=== PATIENT | female | born 1985 | race African-American/Black ===

== ENCOUNTER 2018-08-31 05:12 | Emergency (ER) | payer SELFPAY ==
[2018-08-31] MEDS ORDERED: SODIUM CHLORIDE 0.9% 1,000 ML IV ONE (05:24)
[2018-08-31] MEDS ORDERED: ONDANSETRON 4 MG ODT STARTER PACK 2 TAB BTL PO STA (05:33)
[2018-08-31] MEDS ORDERED: ONDANSETRON 4 MG/2 ML VIAL IVP STA ×2 (05:33→05:34)
[2018-08-31] MEDS ORDERED: HYDROcodone/APAP 5-325MG 1 EACH TAB PO STA (05:33)
--- NOTE | 2018-08-31 05:43 | ED ---
General Adult HPI - General Chief complaint: Extremity Injury, Lower Stated complaint: Knee Pain Time Seen by Provider: 08/31/18 05:23 Source: patient, family Mode of arrival: ambulatory Limitations: no limitations - History of Present Illness Initial comments: The patient is a 33-year-old female with a history of IV heroin abuse who presents the ED today for evaluation of withdrawal and left knee pain. Patient reports that her last use was 3 days ago. She reports she's been awake all night vomiting. She reports that she has developed some pain in her left knee. Pain is an ache, not worse with movement. Pain is not associated with any fevers or chills. Patient does have a history of traumatic injury to left leg with surgical intervention for femur as well as tibial fractures in 2007. Patient is originally from [facility], she reports that she ended up and [place] after getting in a truck with the gentleman, this was related to her drug use. Her friend at bedside is here to drive her back to [place] where she will be with her family in his role in a rehab facility. They came to the ER this morning for management of the patient's withdrawal symptoms so that she can tolerate the long drive home. - Related Data Home Medications Medication Instructions Recorded Confirmed No Known Home Medications 08/31/18 08/31/18 Allergies Allergy/AdvReac Type Severity Reaction Status Date / Time No Known Allergies Allergy Verified 08/31/18 05:21 Review of Systems ROS Statement: Those systems with pertinent positive or pertinent negative responses have been documented in the HPI. ROS Other: All systems not noted in ROS Statement are negative. Past Medical History Additional Past Medical History / Comment(s): drug abuse History of Any Multi-Drug Resistant Organisms: None Reported Past Surgical History: No Surgical Hx Reported Past Psychological History: No Psychological Hx Reported Smoking Status: Current every day smoker Past Alcohol Use History: Unable to Obtain Past Drug Use History: Heroin General Exam - General Exam Comments Initial Comments: Physical Exam GENERAL: Appears older than stated age [place] appears mildly dehydrated HENT: Normocephalic, Atraumatic. EYES: PERRL, EOMI PULMONARY: Unlabored respirations. No audible rales rhonchi or wheezing was noted. CARDIOVASCULAR: There is a regular rate and rhythm without any murmurs gallops or rubs. ABDOMEN: Soft and nontender with normal bowel sounds. SKIN: Lesions on bilateral forearms consistent with IV drug abuse All healed surgical incisions left femur and left tib-fib consistent with surgical history : Deferred NEUROLOGIC: Patient is alert and oriented x3. Moving all extremities spontaneously MUSCULOSKELETAL: Normal extremities with adequate strength and full range of motion. No lower extremity swelling or edema. No calf tenderness. PSYCHIATRIC: Normal psychiatric evaluation. Limitations: no limitations Limitations: no limitations Course Vital Signs 08/31/18 05:18 Temperature 98.6 F Pulse Rate 103 H Respiratory 20 Rate Blood Pressure 100/72 O2 Sat by Pulse 98 Oximetry Medical Decision Making - Medical Decision Making The patient was seen and evaluated, history was obtained from the patient and friend at bedside. Patient with a history of IV heroin abuse, currently withdrawing experiencing nausea, vomiting and diarrhea. Patient has developed left knee pain, I suspect that this is bruising secondary to her kneeling in the toilet vomiting. Patient doesn't recall any specific trauma. She has full range of motion of the knee without any pain, no evidence of a septic joint. At this time the goal is to treat the patient's withdrawal symptoms so that she can tolerate a [address] to [place] where she will be with her family in enrolling rehab. Patient requesting Suboxone. I will give the patient one oral dose of [place], at this time clonidine is not indicated she's not hypertensive. I will treat with IV fluids and Zofran for the acute nausea and vomiting and discharge the patient with a Zofran ODT starter pack. Patient received IV fluids, no nausea or vomiting in the ER. At this time the patient is eager for discharge home, as she will get on the road to [place]. Patient discharged home in stable condition. Disposition Clinical Impression: Narcotic withdrawal Disposition: HOME SELF-CARE Condition: Stable Instructions: Knee Pain (ED) Is patient prescribed a controlled substance at d/c from ED?: No Referrals: Nonstaff,Physician [Primary Care Provider] - 1-2 days
[2018-08-31 06:37] VITALS: BP 132/75; PULSE 98; RESP 18; TEMP 97
== END 2018-08-31 06:37 | disposition home or self-care (01) ==
LOC: EC 05:12
DX: F11.23 Opioid dependence with withdrawal (principal); M25.562 Pain in left knee; L98.8 Other specified disorders of the skin and subcutaneous tissue; F17.200 Nicotine dependence, unspecified, uncomplicated
CPT/HCPCS: 99283; 96374; 96361; J2405; S0119